=== PATIENT | male | born 1945 | race Caucasian/White ===

== ENCOUNTER 2023-11-18 00:47 | Inpatient (IN) | payer OTHER ==
[~2023-11-18] VITALS: Ht 154.9 cm; Wt 96.5 kg
[2023-11-18 01:12] LABS: BASOPHILS ABSOLUTE AUTO 0.02 K/mm3 (0.00-0.23); BASOPHILS PERCENT AUTO 0 % (0-2); EOSINOPHILS ABSOLUTE AUTO 0.22 K/mm3 (0.00-0.68); EOSINOPHILS PERCENT AUTO 3 % (0-6); Hematocrit 40.2 % (37.0-53.0); Hemoglobin 13.3 g/dL (13.5-17.5); IMMATURE GRAN ABSOLUTE AUTO 0.03 K/mm3 (0.00-0.10); IMMATURE GRAN PERCENT AUTO 0 % (0-1); LYMPHOCYTES ABSOLUTE AUTO 2.13 K/mm3 (0.84-5.20); LYMPHOCYTES PERCENT AUTO 29 % (21-46); MONOCYTES ABSOLUTE AUTO 0.66 K/mm3 (0.16-1.47); MONOCYTES PERCENT AUTO 9 % (4-13); Mean Corpuscular HGB 30.5 pg (26.0-34.0); Mean Corpuscular HGB Conc 33.1 g/dL (31.5-36.5); Mean Corpuscular Volume 92 fL (80-100); Mean Platelet Volume 8.9 fL (9.1-12.4); NEUTROPHILS ABSOLUTE AUTO 4.35 K/mm3 (1.96-9.15); NEUTROPHILS PERCENT AUTO 59 % (41-73); Platelet Count 200 K/mm3 (150-400); RDW Coefficient Variation 14.8 % (11.7-14.2); RDW Standard Deviation 50.4 fL (35.1-46.3); Red Blood Cell Count 4.36 M/mm3 (4.30-5.90); White Blood Cell Count 7.41 K/mm3 (4.00-11.30)
[2023-11-18] MEDS ORDERED: Azithromycin 500 MG in NS 250 ML IV ONE (01:30)
[2023-11-18] MEDS ORDERED: Cefepime HCl 2,000 MG in NS 100 ML IV ONE (01:30)
[2023-11-18] MEDS ORDERED: Ketorolac Tromethamine 15mg Vial IV ONE (01:40)
[2023-11-18] MEDS ORDERED: NS 1,000 ML IV SCH (01:40)
[2023-11-18] MEDS ORDERED: Morphine Sulfate 4 MG/1 ML Injection IV ONE (02:10)
[2023-11-18 02:13] LABS: Thyroid Stimulating Hormone 2.58 uIU/mL (0.360-4.800)
[2023-11-18 02:14] LABS: Albumin, Blood 3.2 g/dL (3.4-5.0); Albumin/Globulin Ratio 0.7 (0.8-1.8); Bilirubin, Total 0.5 mg/dL (0.1-1.0); Bun/Creatinine Ratio 13.8 (12.0-20.0); Calcium, Blood 8.9 mg/dL (8.5-10.1); Creatinine, Blood 1.59 mg/dL (0.60-1.20); Globulin, Blood 4.4 g/dL (2.2-4.0); Total Protein, Blood 7.6 g/dL (6.4-8.2)
[2023-11-18] MEDS ORDERED: Metoprolol Tartrate 1 MG/ML 5 ML VIAL IV STA (02:20)
[2023-11-18] MEDS ORDERED: Ondansetron HCl 2 MG / ML 2ML Vial IV ONE (02:20)
[2023-11-18] MEDS ORDERED: FLU VACC QS2023-24(6MOS UP)/PF 60 MCG/0.5 ML SYRINGE IM ONE (02:25)
[2023-11-18] MEDS ORDERED: Acetaminophen 325 MG TABLET PO PRN (02:25)
[2023-11-18 02:52] LABS: Influenza A, PCR NEGATIVE (NEGATIVE); Influenza B, PCR NEGATIVE (NEGATIVE); Resp Syncytial Virus, PCR NEGATIVE (NEGATIVE); SARS-Cov-2 (COVID-19) PCR, MMC NEGATIVE (NEGATIVE)
[2023-11-18] MEDS ORDERED: Ipratropium/Albuterol SulF 2.5-0.5MG/3 ML Amp INH SCH (03:00)
[2023-11-18] MEDS ORDERED: Metoprolol Tartrate 1 MG/ML 5 ML VIAL IV PRN (03:00)
[2023-11-18] MEDS ORDERED: MethylPREDNISolone Sod Succ 125 MG Vial IV SCH (03:00)
[2023-11-18] MEDS ORDERED: Metoprolol Tartrate 50 MG Tab PO SCH (03:00)
[2023-11-18 03:41] VITALS: BP 122/80
[2023-11-18] MEDS ORDERED: ATEN25 PO (03:54)
[2023-11-18] MEDS ORDERED: ELIQUIS2.5 MG PO (03:54)
[2023-11-18] MEDS ORDERED: FURO20 PO (03:55)
[2023-11-18] MEDS ORDERED: CREON DR 12,001 EACH PO (03:55)
[2023-11-18] MEDS ORDERED: ALBU2.5V5 INH (03:58)
[2023-11-18 04:09] LABS: Source, Urine Clean Catch
[2023-11-18 04:13] LABS: Bilirubin, Urine Neg (Neg); Blood, Urine Neg (Neg); Glucose Qualitative, Urine Neg (Neg); Ketones, Urine Neg (Neg); Leukocyte Esterase, Urine Neg (Neg); Nitrite, Urine Neg (Neg); Protein, Urine 2+ (Neg); Urobilinogen, Urine NORM (Normal)
[2023-11-18 04:20] LABS: Appearance, Urine Clear (Clear); Color, Urine Yellow (P-Yellow)
[2023-11-18 04:23] LABS: Bacteria Rare /hpf; Red Blood Cells, Urine 0-2 /hpf (0-2); Squamous Epithelial Cells Rare /hpf (Few); White Blood Cells, Urine 0-2 /hpf (0-5)
[2023-11-18] MEDS ORDERED: Metoclopramide HCl 5MG / ML 2ML Vial IV PRN (04:30)
[2023-11-18] MEDS ORDERED: Morphine Sulfate 4 MG/1 ML Injection IV PRN (04:30)
[2023-11-18 04:33] LABS: U Amphetamine Screen DETECTED; U Cannabinoids Screen DETECTED; U Methamphetamine Screen DETECTED; U Opiates Screen DETECTED
[2023-11-18 04:34] LABS: U Barbituate Screen Not Detected; U Benzodiazapine Screen Not Detected; U Buprenorphine Screen Not Detected; U Cocaine Screen Not Detected; U Methadone Screen Not Detected; U Oxycodone Screen Not Detected; U Phencyclidine Screen Not Detected
[2023-11-18] MEDS ORDERED: Famotidine 10 MG/ML 2ML Vial IV ONE (05:30)
[2023-11-18] MEDS ORDERED: DiphenhydrAMINE HCl 50 MG/ML 1ML Vial IV ONE (05:30)
--- NOTE | 2023-11-18 06:44 | NUR ---
SHIFT SUMMARY PATIENT ARRIVED TO PCU 17 VIA STRETCHER A LITTLE BEFORE 0400. PATIENT WAS ABLE TO STAND AND SELF TRANSFER, ONLY REQUIRING ASSISTANCE FOR LINE MANAGEMENT. PATIENT IS ALERT AND ORIENTED X4. UPON ADMIT PATIENT REPORTED THAT HE WAS COMFORTABLE AND DID NOT HAVE CHEST PAIN, HOWEVER AROUND 0430 PATIENT REPORTED HAVING 10/10 CHEST PAIN WHILE CLUTCHING HIS CHEST AND BEGAN VOMITING. DR BAR WAS NOTIFIED AND 2 MG IV MORPHINE WAS ORDERED THE PATIENT'S PAIN RESPONDED WELL TO IT IN THE ER, AND 10 MG IV REGLAN. WHEN THIS RN RETURNED TO THE PATIENT'S ROOM WITH THE MEDICATIONS, THE PATIENT WAS HAVING UNCONTROLLABLE ITCHING, HE REPORTED THAT HE STARTED ITCHING AFTER RECEIVING MORPHINE EARLIER AND THAT IT WAS WORSE NOW. THIS RN DISCUSSED WITH THE PATIENT AND HIS THAT THIS COULD BE AN ALLERGIC REACTION TO THE MORPHINE, PATIENT'S SAID THAT THE PATIENT WAS EXPOSED TO AGENT ORANGE AND SOMETIMES ITCHES LIKE THIS DUE TO OVERACTIVE NERVES BROUGHT ON BY STRESS AND TO ADMINISTER THE MORPHINE. AFTER THE MORPHINE WAS ADMINISTERED THE PATIENT'S ITCHING BECAME WORSE AND HIS HANDS WERE BECOMING RED AND SWOLLEN. DR BAR AGAIN CALLED AND NOTIFIED OF THE SITUATION, IV BENADRYL AND PEPCID ORDERED. PATIENT IS NOW FEELING COMFORTABLE WITH BOTH ITCHING AND REDNESS SUBSIDED. WILL CONTINUE TO MONITOR. CALL LIGHT WITHIN REACH.
[2023-11-18] MEDS ORDERED: Insulin Human Lispro 100 Units/ML 3ML Syringe SC SCH (07:30)
[2023-11-18 07:38] VITALS: BP 132/87
[2023-11-18] MEDS ORDERED: CefTRIAXone Sodium 1,000 MG in NS 50 ML IV SCH (09:00)
[2023-11-18] MEDS ORDERED: Enoxaparin 40 MG/0.4 ML SYR SC SCH (09:00)
[2023-11-18] MEDS ORDERED: Lactobacil 2-S.Thermo-Bifido 1 1 Cap PO SCH (09:00)
--- NOTE | 2023-11-18 09:00 | NUR ---
AM NOTE: PATIENT ALERT AND ORIENTED X4. VERY SLEEPY THIS AM, PATIENT REPORTING NO SLEEP AND RECENT DOSE OF BENADRYL GIVEN FOR MORPHINE REACTION. REACTION SUBSIDED AND PATIENT STATES HE FEELS NORMAL. NO SWELLING OR REDNESS NOTED. AT [place]LINE PATIENT IND WITH CARES AND WALKING. DENIES NUMBNESS/TINGLING. TELE SHOWING AFIB WITH HR 80-100 AT REST AND UP TO 120'S WITH ACTIVITY. DENIES CHEST PAIN/PRESSURE/PALPITATIONS. BP STABLE. PPP. NO EDEMA NOTED. PO ELIQUIS ORDERS IN PLACE. ON ROOM AIR SATING LOW 90'S. PATIENT WITH HISTORY OF COPD, DENIES USING OXYGEN OR CPAP/BIPAP AT HOME. EVEN AND UNLABORED RESPIRATIONS. LUNGS SOUNDS CLEAR AND DIM. DENIES SOB/COUGH. BOWEL TONES PRESENT. PATIENT DENIES ISSUES VOIDING. HISTORY OF ESOPHAGEAL CANCER WITH SURGERY. PATIENT STATES HIS ESOPHAGUS IS NARROWED AND INTERMIT HE WILL VOMIT FOOD IF IT GETS STUCK. DENIES NAUSEA WITH THIS. PATIENT DENIES NEEDING DIET ALTERED. DENTURES IN PLACE. ATTENDS IN PLACE. PATIENT USING URINAL TO VOID. SKIN OVERALL FRAGILE WITH SOME SCATTERED BRUISING AND SCRATCHES. THIS RN PLACED CALL TO [facility] AND ABLE TO VERIFY HOME MEDS. DR. BASILIO UPDATED ON HOME MEDS, ORDERS PLACED BY DR. BASILIO. [facility] BLOOD SUGAR CHECKS. CALL LIGHT IN REACH. AT BEDSIDE THIS AM AND UPDATED BY THIS RN. IV ABX INFUSED. DENIES NEEDS AT THIS TIME.
[2023-11-18 11:16] VITALS: BP 123/88
--- NOTE | 2023-11-18 11:26 | NUR ---
DR. BASILIO CALLED BY THIS RN TO UPDATE ON HOME DOSE ELIQUIS. DR. BASILIO TO PLACE ORDERS.
[2023-11-18] MEDS ORDERED: BUPR150ER PO (11:32)
[2023-11-18] MEDS ORDERED: VITAMIN D31000 UNI1 PO (11:33)
[2023-11-18] MEDS ORDERED: B-12500 MC2 PO (11:34)
[2023-11-18] MEDS ORDERED: LEVSOD75 PO (11:35)
[2023-11-18] MEDS ORDERED: Hair, Skin & N1 EACH PO (11:35)
[2023-11-18] MEDS ORDERED: ZESTRIL40 M1 PO (11:35)
[2023-11-18] MEDS ORDERED: Albuterol 2.5 MG/3 ML VIAL INH PRN (11:50)
[2023-11-18] MEDS ORDERED: Amylase/Lipase/Protease DR Cap 12,000 PO SCH (12:30)
[2023-11-18 16:23] VITALS: BP 127/85
--- NOTE | 2023-11-18 16:28 | NUR ---
PATIENT CONVERTED TO NSR WITH HR 70'S AT 1349. DR. BASILIO UPDATED AT THAT TIME, NO NEW ORDERS AT THIS TIME.
--- NOTE | 2023-11-18 18:38 | NUR ---
SHIFT SUMMARY: PATIENT REMAINS ALERT AND ORIENTED. TELE SHOWING SR WITH HR 70'S. BP STABLE. EATING AND VOIDING WNL. PATIENT UP TO BATHROOM TO VOID. SHOWER COMPLETED THIS SHIFT. REMAINS ON ROOM, DENIES SOB/COUGH. CALL LIGHT IN REACH.
[2023-11-18] MEDS ORDERED: NS 250 ML IV PRN (19:15)
[2023-11-18] MEDS ORDERED: Azithromycin 500 MG in NS 250 ML IV SCH (21:00)
[2023-11-18] MEDS ORDERED: Apixaban 5 MG Tab PO SCH (21:00)
[2023-11-18] MEDS ORDERED: Famotidine 20 MG Tab PO SCH (21:00)
[2023-11-18 21:51] VITALS: BP 146/81
[2023-11-19 00:55] VITALS: BP 172/83
[2023-11-19] MEDS ORDERED: Lisinopril 20 MG Tab PO SCH ×2 (02:15→09:00)
[2023-11-19 04:58] VITALS: BP 154/79
--- NOTE | 2023-11-19 05:43 | NUR ---
ASSUMED CARE AT APPROX 0030A REPORT RECEIVED FROM HEIKE GURROLA. PT HAS BEEN COHERENT COOPERATIVE WITH CARES, VITALS HRR SR 70-80'S, SBP 150-170'S PROVIDER MADE AWARE LISINOPRIL 40MG AM DOSE GIVEN EARLY FOR TODAY. NO ACUTE CHANGE T/O SHIFT. PT SLEPT WITH NO ISSUES. SATS ABOVE 95% ON RA. PT HAS BEEN USING THE URINAL AT BEDSIDE INDEPENDENTLY. CALLS APPROPRIATELY. WILL REPORT TO ONCOMING SHIFT
[2023-11-19] MEDS ORDERED: Levothyroxine Sodium 0.075 MG Tab PO SCH (06:00)
[2023-11-19 08:56] VITALS: BP 163/84
[2023-11-19] MEDS ORDERED: Multivitamins/Minerals TAB PO SCH (09:00)
[2023-11-19] MEDS ORDERED: Cyanocobalamin 500 MCG Tab PO SCH (09:00)
[2023-11-19] MEDS ORDERED: Cholecalciferol 1000 Unit Tablet (=25MCG) PO SCH (09:00)
[2023-11-19] MEDS ORDERED: Furosemide 20 MG Tab PO SCH (09:00)
[2023-11-19] MEDS ORDERED: buPROPion HCL 150 MG TAB.SR.12H PO SCH (09:00)
[2023-11-19 12:08] VITALS: BP 136/75
[2023-11-19] MEDS ORDERED: DOXY100 PO (12:52)
[2023-11-19] MEDS ORDERED: Prednisone20 MG PO (12:53)
[2023-11-19] MEDS ORDERED: METO50ER PO (12:54)
--- NOTE | 2023-11-19 14:04 | NUR ---
ASSUMED CARE OF PT AT 0700 THIS AM. NO ACUTE CHANGES T/O THE MORNING. PT EXPRESSES TO THIS RN THAT HE WANTS TO GO HOME TODAY. DR ALONSO SAW PT THIS AM, NOTIFIED THAT PT WISHES TO GO HOME. DISCHARGE ORDERS PLACE. RXs SENT TO [facility] PER PT REQUEST. IV TO L WRIST REMOVED, SITE WNL. VS. PT IS ON RA AND ABLE TO AMBULATE INDEPENDENTLY AROUND THE ROOM. DISCARGE TEACHING REVIEWED WITH PT INCLUDING MEDICATION LIST, MEDICATION CHANGES, FOLLOW UP APPOINTMENTS AND EDUCATION MATERIALS. PT VERBALZES UNDERSTANDING AND DOES NOT HAVE ANY FURTHER QUESTIONS AT THIS TIME. PT ABLE TO AMBULATE OUT OF THE HOSPITAL WITH HIS , ALL BELONGINGS SENT HOME WITH PT. NO FURTHER DISCHARGE NEEDS IDENTIFIED.
== END 2023-11-19 13:15 | disposition home or self-care (01) | DRG 193 ==
LOC: ER 00:47 → PCU 00:48
PROVIDERS: Emergency Medicine; ADMIT Internal Medicine
DX: J18.9 Pneumonia, unspecified organism (principal); J96.01 Acute respiratory failure with hypoxia; J44.0 Chronic obstructive pulmonary disease with (acute) lower respiratory infection; J44.1 Chronic obstructive pulmonary disease with (acute) exacerbation; N17.9 Acute kidney failure, unspecified; I48.91 Unspecified atrial fibrillation; E11.9 Type 2 diabetes mellitus without complications; Z90.49 Acquired absence of other specified parts of digestive tract; Z85.01 Personal history of malignant neoplasm of esophagus; Z87.891 Personal history of nicotine dependence; Z11.52 Encounter for screening for COVID-19; Z28.21 Immunization not carried out because of patient refusal
CPT/HCPCS: 0241U; 36415; 71045; 80053; 81001; 82947; 83605; 83690; 84145; 84443; 84484; 85025; 85379; 87040; 87077; 87186; 93005; 93010; 94640; 94664; 94760; 94762; 96361; 96374; 96375; 99285-25; A9270; G0378; J0456; J0692; J0696; J1200; J1885; J2270; J2405; J2765; J2930; J7030; J7050